=== PATIENT | female | born 1945 | race Caucasian/White ===

== ENCOUNTER → 2020-07-03 11:37 | Outpatient (CLI) | payer MEDICARE, SELFPAY ==
--- NOTE | ~2020-07-03 | XR_ITS ---
XR knee RT 2V DATE: 07/03/2020 11:48 INDICATION: Right knee pain TECHNIQUE: Upright AP and lateral views COMPARISON: None FINDINGS: Prominent diffuse osteopenia. No fracture or dislocation or joint effusion. No periosteal reaction or bone destruction. No radiopaq ue intra-articular loose body or chondrocalcinosis. Joint spaces are well preserved. IMPRESSION: Severe osteopenia Reviewed, dictated and finalized at location B. IMPRESSION: Severe osteopenia
== END ==
PROVIDERS: Visit Provider Nurse Practitioner Adult Health
DX: M85.861 Other specified disorders of bone density and structure, right lower leg (principal)
CPT/HCPCS: 73560